=== PATIENT | male | born 2000 | race Asian ===

== ENCOUNTER 2020-11-08 15:09 | Outpatient (REF) | payer SELFPAY | END 2020-11-08 15:10 | disposition home or self-care (01) | LOC: HO.LAB 15:09 | PROVIDERS: Visit Provider Internal Medicine | DX: Z20.828 Contact with and (suspected) exposure to other viral communicable diseases (principal) | CPT/HCPCS: C9803; U0003 ==

== ENCOUNTER 2020-12-25 11:37 | Outpatient (REF) | payer OTHER, SELFPAY | END 2020-12-25 11:38 | disposition home or self-care (01) | LOC: HO.LAB 11:37 | PROVIDERS: Visit Provider Internal Medicine | DX: Z20.822 Contact with and (suspected) exposure to COVID-19 (principal) | CPT/HCPCS: 36415; C9803; U0003; U0005 ==